=== PATIENT | female | born 1995 | race Caucasian/White ===

== ENCOUNTER 2023-05-22 06:52 | Emergency (ER) | payer OTHER, SELFPAY ==
--- NOTE | ~2023-05-22 | US_ITS ---
EXAMINATION: US OBSTETRICAL ULTRASOUND CLINICAL INFORMATION: 8 weeks with vaginal bleeding. COMPARISON: None available. LMP: 03/28/2023.. Gestational age by maternal dates is 7 weeks and 6 days. Estimated date of delivery by maternal dates is 01/02/2024. TECHNIQUE: A limited obstetrical ultrasound was performed. FINDINGS: There is a no recognizable intrauterine gestational sac with visible yolk sac, embryo/fetus, or cardiac activity. There is a trace amount of fluid in the uterine fundus, nonspecific. Endometrial stripe measures 0.7 cm in thickness. Cervical length is normal, measuring at least 3 cm. Trace endocervical free fluid. Internal os closed. Small nabothian cyst is seen in the cervix. There is also a 0.8 x 0.5 x 0.6 cm simple appearing avascular cyst seen posterior to the lower uterine segment of the uterus. HR: Not visualized CRL (crown rump length): Not visualized GINETTE (estimated date of delivery): Not able to assess. MATERNAL ADNEXA: The right maternal ovary measures 4.5 x 1.2 x 2.5 cm cm. The left maternal ovary measures 5.1 x 2.1 x 2.7 cm. There is a slightly thick-walled 2.7 x 1.8 x 2.3 cm cyst in the left ovary, consistent with a corpus luteum cyst. There is no significant maternal adnexal mass. No maternal pelvic ascites. US/US OB pelvic and transvaginal IMPRESSION: 1. No intrauterine gestational sac is identified. Please correlate clinically with patient's presentation, serial beta-hCGs and repeat pelvic ultrasound in 7-10 days. 2. Nonspecific trace free fluid is seen in the upper uterine endometrium and cervix. 3. No maternal adnexal mass or pelvic ascites.
[2023-05-22 06:54] VITALS: BP 148/100; PULSE 102; RESP 18; TEMP 36.6; O2SAT 99; BMI 21.5
--- NOTE | 2023-05-22 07:34 | ED_ITS ---
HPI - Female Genitourinary General Chief complaint: Vaginal Bleeding Stated complaint: ? miscarriage Time Seen by Provider: 05/22/23 07:26 Source: patient and family (Spouse) Mode of arrival: ambulatory Limitations: no limitations History of Present Illness HPI Narrative: 28-year-old female 8 weeks by date her 1st care for this is scheduled for tomorrow, came in for evaluation of abdominal cramps and vaginal bleeding. Started as vaginal spotting 2 days ago then progress to heavy vaginal bleeding till this morning when she had a severe lower abdominal cramps then passed a large blood clots versus tissue in the toilet this morning, patient now has no abdominal pain or cramps, reported decrease vaginal bleeding. Patient needed to use 1 pad in the last hour that was not soaked. Related Data Allergies Allergy/AdvReac Type Severity Reaction Status Date / Time No Known Allergies Allergy Verified 05/22/23 07:00 Review of Systems 2 Review of Systems: All other systems are reviewed and are negative Constitutional: Reports as per HPI and Reports no additional constitutional complaints Eyes: Reports as per HPI and Reports no additional eye complaints Reports system reviewed and no additional complaints, except as documented Cardiovascular: Reports as per HPI and Reports no additional cardiovascular complaints Respiratory: Reports as per HPI and Reports no additional respiratory complaints Gastrointestinal: Reports as per HPI and Reports no additional gastrointestinal complaints Genitourinary: Reports no additional female genitourinary complaints Musculoskeletal: Reports no additional musculoskeletal complaints Skin/Breast: Reports system reviewed and no additional complaints, except as docu Psychiatric: Reports no additional psychiatric complaints Endocrine: Reports no additional endocrine complaints Hematologic/Lymphatic: Reports no additional hematologic/lymphatic complaints Allergic/Immunologic: Reports no additional allergic/immunologic complaints Reports system reviewed and no additional complaints, except as documented and Reports Abnormal speech present [facility] Social History Social History Smoked in Last 30 Days: No Use of substances other than those prescribed or required for medical reasons: No Advance Directives: No Advance Directives Information Provided: No Patient : Yes Physical Exam 2 Vital Signs: Vital Signs: Last Vital Signs Temp 98.8 F 05/22/23 07:53 Pulse 72 05/22/23 07:53 Resp 14 05/22/23 10:41 BP 99/58 L 05/22/23 10:41 Pulse Ox 99 05/22/23 10:41 O2 Del Method Room Air 05/22/23 10:41 BMI result Body Mass Index 21.5 Vital signs have been reviewed and appear to be correct. Blood pressure elevated. Heart rate normal. Respiratory rate normal. Temperature normal. Oxygen saturation normal. Appearance: Alert. Oriented X3. No acute distress. Head: Normal external exam. Normocephalic. Atraumatic. No Perez signs noted. No raccoon eyes noted Eyes: PERRLA. EOMI. Conjunctiva and sclera normal. Eyelids normal. ENT: TM's Normal. Pharynx normal. Uvula midline. Moist mucous membranes. No trismus noted. No drooling noted. No muffled voice noted. Neck: Normal inspection. Neck supple. FROM. No adenopathy. Thyroid Normal. No meningeal signs. No neck mass noted. CVS: Normal heart rate and rhythm. Heart sound normal. No murmurs noted. Pulses normal throughout. Respiratory: No respiratory distress. Painless inspiration. Breath sounds normal. No wheezes/rales/rhonchi noted. Chest nontender. No accessory muscle usage noted or decreased air movement noted. Abdomen: Soft and nontender. Bowel sounds normal in all 4 quadrants. No distention noted. No organomegaly noted. No visible injury noted. Pelvic exam: Deferred for the ultrasound. Back: No CVA tenderness. Full range of motion noted. Skin: Skin warm and dry. Normal skin color. Normal skin turgor. No rashes/lesions/lacerations noted. Extremities: No lower extremity edema. Extremities exhibit normal range of motion. Extremities nontender. Neuro: Oriented X 3. Cranial nerve exam: II-XII are grossly intact No motor deficit. No sensory deficit. Reflexes normal. Course Reevaluation(s) Reevaluation #1: 28-year-old female came in after having a vaginal bleeding, patient hemodynamically stable with stable H&H, hCG is elevated, no intrauterine gestational sac on the ultrasound. Patient was instructed to follow-up with her OBGYN for repeat hCG +/- ultrasound as per OBGYN. Patient reported no vaginal bleeding with dry pads while she is in the dementia seizure department, no CP, no dizziness. Time: 12:03 Medical Decision Making Differential Diagnosis Differential Diagnoses: The differential diagnosis associated with the presentation includes (Early , threatened miscarriage, completed miscarriage, ectopic , electrolyte abnormality, severe anemia, ABO Rh incompatibility.) Admission/Observation Consideration of admission/observation: Escalation of care including admission/observation considered Lab Data MDM Lab Attestation statement: I reviewed the patient's lab results. 05/22/23 08:00 05/22/23 08:00 Labs: Lab Results 05/22/23 05/22/23 05/22/23 Range/Units 08:00 08:06 08:39 WBC 6.9 (4.8-10.8) X10*3/uL RBC 4.27 (4.20-5.50) X10*6/uL Hgb 13.3 (12.0-16.0) g/dl Hct 38.1 (37.0-47.0) % MCV 89.2 (80.0-98.0) fL MCH 31.1 (27.0-33.0) pg MCHC 34.9 (31.0-35.0) g/dl RDW 11.5 (11.0-16.0) % Plt Count 238 (160-400) X10*3/uL MPV 9.2 L (9.4-12.3) fL Immature Gran % (Auto) 0.1 (0.0-0.4) % Neut % (Auto) 65.1 (45-73) % Lymph % (Auto) 23.6 (20-40) % Churchill % (Auto) 6.7 (2-11) % Eos % (Auto) 4.2 H (0-4) % Baso % (Auto) 0.3 (0-2) % Lymph # (Auto) 1.6 (1.2-4.9) X10*3/uL Churchill # (Auto) 0.5 (0.1-1.2) X10*3/uL Eos # (Auto) 0.3 (0.0-0.4) X10*3/uL Baso # (Auto) 0.0 (0.0-0.2) X10*3/uL Abs Immat Gran (auto) 0.01 (0.00-0.03) X10*3/uL Absolute Neuts (auto) 4.5 (2.0-8.3) x10*3/uL Absolute Nucleated RBC 0.000 (0.0-0.012) X10*3/uL Nucleated RBC % (auto) 0.0 (0.0-0.2) /100WBC Sodium 140 (135-145) mmol/L Potassium 4.2 (3.3-5.1) mmol/L Chloride 107 (96-108) mmol/L Carbon Dioxide 25 (22-29) mmol/L Anion Gap 12 (12-20) BUN 5 L (9-16) mg/dL Creatinine 0.66 (0.5-1.4) mg/dL Estim Creat Clear Calc 108.5 Estimated GFR > 60 Random Glucose 86 (60-115) mg/dL Calcium 9.1 (8.4-10.2) mg/dL Total Bilirubin 0.5 (0.0-1.0) mg/dL AST 20 (5-31) U/L ALT 13 (0-31) U/L Alkaline Phosphatase 39 (39-117) U/L Total Protein 6.9 (6.5-8.0) g/dL Albumin 4.3 (3.5-5.0) g/dL Beta HCG, Quant 34579 mIU/mL Urine Color Yellow Urine Appearance Clear Urine pH 8.0 (5.0-9.0) Ur Specific Maud 1.010 (1.005-1.025) Urine Protein Negative (Neg-Trace) mg/dL Urine Glucose (UA) Negative (Negative) mg/dL Urine Ketones Negative (Negative) mg/dL Urine Blood Moderate (2+) H (Negative) Urine Nitrite Negative (Negative) Ur Leukocyte Esterase Negative (Negative) Urine RBC 0-2 (0-2) /HPF Urine WBC 0-5 (0-5) /HPF Ur Squamous Epith Cells 0-2 (0-2) /HPF Urine Bacteria None Seen (None Seen) Hyaline Casts 0-2 (0-2) /LPF Urine Test POSITIVE H (NEGATIVE) Blood Type B Positive Independent Interpretation I performed an independent interpretation of an: Ultrasound (Pelvic:1. No intrauterine gestational sac is identified. Please correlate clinically with patient's presentation, serial beta-hCGs and repeat pelvic ultrasound in 7-10 days. 2. Nonspecific trace free fluid is seen in the upper uterine endometrium and cervix. 3. No maternal adnexal mass or pelvic asc) Radiology Impression Discussion of test interpretation with radiology: I have reviewed the radiologist's reading. Discharge Plan Discharge Clinical Impression: Vaginal bleeding in Patient Disposition: Home, Self-Care Instructions: Miscarriage (ED) Additional Instructions: Keep your appointment with your OBGYN this week as scheduled.
[2023-05-22 07:53] VITALS: BP 118/73; PULSE 72; RESP 18; TEMP 37.1; O2SAT 97
--- NOTE | 2023-05-22 08:03 | PC.NURSE ---
a&ox4. vss and up to date. pt presents to the ED d/t vaginal bleeding that started x 2 days ago. light spotting tuesday/tuesday and heavy bleeding w/ large dark red clots this am. pt denies feeling dizzy/lightheaded/nauseous. pt still verbalizing 8/10 intermittent abd pain at this time. 20gIV placed in the right AC - labs obtained/sent to lab ultrasounds bedside at this time. no sob/wob noted. respirations even and unlabored. plan of care ongoing. partner bedside for support. call parada placed within reach.
[2023-05-22 08:04] LABS: MANUAL DIFF FLAG NO
[2023-05-22 08:07] LABS: Basophils Percent Auto 0.3 % (0-2); Eosinophils Absolute Auto 0.3 X10*3/uL (0.0-0.4); Eosinophils Percent Auto 4.2 % (0-4); Hematocrit 38.1 % (37.0-47.0); Hemoglobin 13.3 g/dl (12.0-16.0); Imm Gran Abs Auto 0.01 X10*3/uL (0.00-0.03); Imm Gran Pct Auto 0.1 % (0.0-0.4); Lymphocytes Absolute Auto 1.6 X10*3/uL (1.2-4.9); Lymphocytes Percent Auto 23.6 % (20-40); Mean Corpuscular HGB Conc 34.9 g/dl (31.0-35.0); Mean Corpuscular Hemoglobin 31.1 pg (27.0-33.0); Mean Corpuscular Volume 89.2 fL (80.0-98.0); Mean Platelet Volume 9.2 fL (9.4-12.3); Monocytes Absolute Auto 0.5 X10*3/uL (0.1-1.2); Monocytes Percent Auto 6.7 % (2-11); Neutrophils Absolute Auto 4.5 x10*3/uL (2.0-8.3); Neutrophils Percent Auto 65.1 % (45-73); Platelet Count 238 X10*3/uL (160-400); Red Blood Count 4.27 X10*6/uL (4.20-5.50); Red Cell Distribution Width 11.5 % (11.0-16.0); White Blood Count 6.9 X10*3/uL (4.8-10.8)
[2023-05-22 08:20] LABS: Alanine Aminotransferase 13 U/L (0-31); Albumin Level 4.3 g/dL (3.5-5.0); Alkaline Phosphatase 39 U/L (39-117); Anion Gap 12 (12-20); Aspartate Amino Transferase 20 U/L (5-31); Bilirubin Total 0.5 mg/dL (0.0-1.0); Blood Urea Nitrogen 5 mg/dL (9-16); Calcium 9.1 mg/dL (8.4-10.2); Carbon Dioxide 25 mmol/L (22-29); Chloride 107 mmol/L (96-108); Creatinine Clr Calc Pharmacy 108.5; Estimated Glomerular Filt Rate > 60; Glucose Random 86 mg/dL (60-115); Potassium 4.2 mmol/L (3.3-5.1); Sodium 140 mmol/L (135-145); Total Protein 6.9 g/dL (6.5-8.0)
[2023-05-22 08:25] LABS: HCG Quantitative 10723 mIU/mL
--- NOTE | 2023-05-22 08:45 | PC.NURSE ---
urine obtained/sent to lab.
[2023-05-22 08:46] LABS: Appearance Urine Clear; Color Urine Yellow; Glucose Urine UA Negative (Negative); Leukocyte Esterase Urine Negative (Negative); Nitrite Urine Negative (Negative); UMIC TRIGGER UACC YES; Urine Blood Moderate (2+) (Negative); Urine Ketones Negative (Negative); Urine Protein Negative (Neg-Trace)
[2023-05-22 08:47] LABS: UPreg QC Valid YES; Urine Pregnancy POSITIVE (NEGATIVE)
[2023-05-22 08:58] LABS: Bacteria Urine None Seen (None Seen); Hyaline Casts Urine 0-2 /LPF (0-2); RBC Urine 0-2 /HPF (0-2); Squamous Epithelial Cell Urine 0-2 /HPF (0-2); WBC Urine 0-5 /HPF (0-5)
[2023-05-22 10:41] VITALS: BP 99/58; RESP 14; O2SAT 99
[2023-05-22 12:18] VITALS: BP 108/55; PULSE 63; RESP 14; TEMP 36.7; O2SAT 99
[2023-05-22 12:32] VITALS: BP 108/55; PULSE 63; RESP 14; TEMP 36.7; O2SAT 99
== END 2023-05-22 12:33 | disposition home or self-care (01) ==
PROVIDERS: Emergency Provider Emergency Medicine
DX: O20.9 Hemorrhage in early pregnancy, unspecified (principal); Z3A.08 8 weeks gestation of pregnancy
CPT/HCPCS: 36415; 76801; 76817; 80053; 81001; 81025; 84702; 85025; 86900; 86901; 99284